=== PATIENT | female | born 1945 | race Caucasian/White ===

== ENCOUNTER 2021-09-10 17:56 | Emergency (ER) | payer MEDICARE, SELFPAY ==
[2021-09-10 18:36] VITALS: BP 173/80; PULSE 94; RESP 16; TEMP 37.1; O2SAT 96; BMI 25.0
--- NOTE | 2021-09-10 18:54 | XRR_ITS ---
PROCEDURE INFORMATION: Exam: XR Right Hand Exam date and time: 09/10/2021 6:58 PM Age: 76 years old Clinical indication: Injury or trauma; Other: Laceration; Hand; Right TECHNIQUE: Imaging protocol: XR Right hand. Views: 3 or more views. COMPARISON: No relevant prior studies available. FINDINGS: Bones/joints: Severe osteopenia and diffuse moderate to severe degenerative changes are noted in the hand and wrist. Old healed fracture deformity of the distal radius and onion itis fracture of the ulnar styloid process is noted. No acute fracture or bony deformity of the 5th metacarpal. No dislocation. Soft tissues: There is a soft tissue laceration adjacent to the distal aspect of the 5th metacarpal. No foreign body. XR/XR hand RT min 3V* [id number] IMPRESSION: 1. There is a soft tissue laceration adjacent to the distal aspect of the 5th metacarpal. No foreign body. 2. No acute bony abnormality .
--- NOTE | 2021-09-10 18:54 | W.ED.FALL ---
HPI - Fall General: Chief Complaint: Fall Stated Complaint: R hand cut Time Seen by Provider: 09/10/21 18:53 History of Present Illness: 76-year-old female comes in today with injury to the right hand. Patient reports she was going out her front door and tripped causing her to fall to the ground and during the fall she injured her right hand. Patient has a obvious laceration to the fifth metacarpal region of the hand. Normal range of motion of the hand is noted. No obvious tendon injury is noted. Patient does not recall her last tetanus. Patient reports no routine medications. Patient is alert and oriented. Patient reported some mild right hip pain but is ambulatory and feels the pain is doing better. Patient also reported some right side discomfort that also has improved since the fall. MD complaint: fall Onset (ago): hour(s) Fall from: standing Place fall occurred: home Loss of consciousness: None Prolonged down time: no Symptoms prior to fall: none Context: tripped/slipped Location of injury - extremities: Right: hand Associated symptoms-after fall: Denies chest pain Review of Systems General: Reports: 10 or more systems reviewed and unremarkable except in HPI and below Const: Denies: fever(s) Card: Denies: chest pain Resp: Denies: dyspnea GI: Reports: nausea and vomiting Musc: Reports: extremity pain (Right hand) Skin/Breast: Reports: new lesions (Laceration right hand) Physical Exam Const: COMMON NORMALS: alert HENMT: COMMON NORMALS: atraumatic HEAD & SCALP: atraumatic Neck/C-Spine: COMMON NORMALS: full ROM Chest: COMMONS NORMALS: normal palpation of entire chest wall Resp: COMMON NORMALS: normal respiratory effort and clear to auscultation bilaterally AUSCULTATION: clear to auscultation bilaterally Cardio: COMMON NORMALS: regular rate and regular rhythm RATE: regular rate RHYTHM: regular rhythm Back/Pelvis: THORACIC SPINE/UPPER BACK: No thoracic spinal tenderness LUMBAR SPINE/LOWER BACK: No lumbar spinal tenderness Extremity: RIGHT UPPER EXTREMITY: Yes hand & digits (Laceration near the fifth metacarpal, 4 cm) Right hand and digits: Yes inspection, Yes palpation and Yes ROM exam Neuro: SENSORIUM/ORIENTATION: Yes alert Skin: TRAUMA: laceration (4 cm right hand) irregular, involves subcutaneous tissue, motor nerve function intact and sensation intact; Negative for no foreign bodies present and does not involve muscle tissue Procedures Laceration Laceration 1: Site: hand Side (If applicable): right Size (cm): 4 Depth: simple, single layer Local Anesthetic: lidocaine 1% Amount of anesthesia used (mL): 5 Pre-repair: wound explored and irrigated extensively Skin layer closed with: nylon Size (cm): 4-0 Number of sutures: 5 Technique: simple, interrupted (3) and horizontal mattress (2) Course Vital Signs: Vital signs: Vital Signs Temperature 98.7 F 09/10/21 18:36 Pulse Rate 94 09/10/21 19:06 Respiratory Rate 16 09/10/21 19:06 Blood Pressure 173/80 09/10/21 19:06 Pulse Oximetry 96 09/10/21 19:06 MDM - Fall Medical Decision Making 76-year-old female comes in with injury to the right hand. On exam patient has a laceration that goes into the subcutaneous fat near the fifth metacarpal of the right hand. Patient has normal tendon function, no foreign body. Differential diagnosis includes fracture, laceration, foreign body. X-ray notes no foreign body or fracture. Wound was cleaned and approximated with Prolene sutures. 2 horizontal mattress sutures were used to close up the subcutaneous fat. 3 sutures simple interrupted sutures were used to close upper layers. Patient tolerated well. Post procedure care and instructions was provided to patient who reported understanding. No signs of other significant injury was noted. Patient was recommended to return to the ER for worsening symptoms or new concerns. Lab Data Radiology Impressions Hand X-Ray 09/10/21 18:54 IMPRESSION: 1. There is a soft tissue laceration adjacent to the distal aspect of the 5th metacarpal. No foreign body. 2. No acute bony abnormality . Discharge Plan Discharge Patient Disposition: Home Clinical Impression: Fall Laceration of hand Qualifiers: Encounter type: initial encounter Foreign body presence: without foreign body Laterality: right Qualified Code(s): S61.411A - Laceration without foreign body of right hand, initial encounter Condition: Stable Prescriptions: New cephalexin 250 mg capsule 250 mg PO BID 7 Days Qty: 14 0RF Discharge Orders: Discharge ED (Routine); Ordered 09/10/21 Ordered By: Roman Mendez Discharge Diet: Usual diet Discharge Activity: Increase activity as tolerated Patient Instructions: Laceration (ED) Activity Restrictions/Additional Instructions: Keep wound clean and dry. Is important keep the wound as dry as possible for the next 48 hours. Change the dressing if it becomes wet or soiled. Follow-up with primary care in 1 week. Sutures need to come out in 7 to 10 days. Use acetaminophen or ibuprofen for pain. Monitor site for signs of infection such as redness, fever. Return to the ER as needed. Coding Level of Care Code ED [employer] Consultant for Sherrill Baeza
[2021-09-10 19:06] VITALS: BP 173/80; PULSE 94; RESP 16; O2SAT 96
[2021-09-10] MEDS: cephALEXin 500 mg Capsule PO (19:38)
[2021-09-10] MEDS: tetanus-dipt-pertussis 0.5 mL SDV IM (19:39)
--- NOTE | 2021-09-19 13:25 | PC.NURSE ---
Pt here in the ED for suture removal. PT states the sutures have been in place since 09/10/21. Pt denies any issues with the wound site. Miriam Godinez looked at suture site and verbal okay to take sutures out. Site free of drainaige or redness. Sutures removed easily. Bandaids placed after removal.
== END 2021-09-10 19:44 | disposition home or self-care (01) ==
PROVIDERS: Emergency Provider Nurse Practitioner Family
DX: S61.411A Laceration without foreign body of right hand, initial encounter (principal); W01.0XXA Fall on same level from slipping, tripping and stumbling without subsequent striking against object, initial encounter
CPT/HCPCS: 12042; 73130; 90471; 90715; 99283

== ENCOUNTER → 2023-07-20 13:26 | Outpatient (BNVA) | payer MEDICARE, SELFPAY | PROVIDERS: PCP Family Medicine Adult Medicine; Visit Provider Family Medicine Adult Medicine | DX: R03.0 Elevated blood-pressure reading, without diagnosis of hypertension (principal); L65.9 Nonscarring hair loss, unspecified; F41.9 Anxiety disorder, unspecified; Z98.890 Other specified postprocedural states; Z85.820 Personal history of malignant melanoma of skin; L98.9 Disorder of the skin and subcutaneous tissue, unspecified | CPT/HCPCS: 80053; 84443; 85025 ==